=== PATIENT | male | born 1990 | race Caucasian/White ===

== ENCOUNTER 2020-08-29 18:24 | Emergency (ER) | payer OTHER, SELFPAY ==
[2020-08-29 18:25] VITALS: BP 126/75; PULSE 84; RESP 19; TEMP 36.6; O2SAT 100; BMI 28.3
--- NOTE | 2020-08-29 18:44 | HMH.EDUTC ---
[facility] [place] Disposition Clinical Impression: Encounter for laboratory testing for COVID-19 virus Disposition: Home, Self-Care Condition on Discharge: Good Instructions: DI for COVID-19 (Suspected or Confirmed ), Coronavirus Disease 2019, Preventing the Spread of Coronavirus Discharge Instructions Additional Instructions: *Monitor Temp, Over the counter Motrin or Tylenol as directed/as needed Tylenol every 4 hours and Motrin every 6 hours (as long as your family doctor has told you that you can take it) for fever or pain. and straight to ER if unable to lower temp less than 101.0 after medication given *Warm salt water gargles may help to soothe the throat *Throat Lozenges *Warm fluids like tea with honey may help to soothe the throat *Sleep elevated *Humidifier/Vaporizer Follow up IMMEDIATELY for new or worsening symptoms or no Noticeable improvement over the next 48-72 hours. 911 for difficulty breathing or swallowing You were tested for today for COVID19 your test result should be back in the next 24-48 hours, you may call to the [facility] to see if your test results are back in the next 48 hours [phone] [facility] hours are 9am-9pm You was given a handout with instructions for Self Quarantine and Self isolation for while you wait on test results and what to do if they are positive If you are positive the Health Dept will be contacting you also Referrals: PCP,No [Primary Care Provider] - As needed Forms: Work/School Release Time of Disposition: 18:46 Medical Decision Making - Cholo Inquiry Pt receiving controlled substance: No Cholo was queried for this patient: No Vital Signs: 08/29/20 18:25 Temperature 97.8 F Temperature Source Oral Pulse Rate [Right Brachial] 84 Respiratory Rate 19 Blood Pressure [Right Arm] 126/75 Blood Pressure Mean [Right Arm] 92 Blood Pressure Source [Right Arm] Automatic Cuff Blood Pressure Position [Right Arm] Sitting 02 Sat by Pulse Oximetry 100 Oxygen Delivery Method Room Air Orders (Tests/Meds): ORDERS Category Date Time Status Covid-19 Nasal PCR ([facility]) Routine Lab 08/29/20 18:26 Ordered [facility] [place] HPI - General Stated complaint: covid test Time Seen by Provider: 08/29/20 18:44 Mode of Arrival: Ambulatory Source of Information: Patient Limitations: No Limitations Description of Symptoms (Recalled from Triage Doc. by RN): PATIENT REPORTS HE WOKE UP WITH A SORE THROAT, BUT FEELS BETTER NOW. HIS JOB WANTS HIM TO HAVE A COVID TEST HEENT Symptoms (Recalled from RN notes): No Resp Symptoms (Recalled from RN notes): No Skin Symptoms (Recalled from RN notes): No MS Symptoms (Recalled from RN notes): No Functional Status (Recalled from RN notes): WNL - History of Present Illness Provider Complaint: Patient states that he woke up with sore throat a couple of days ago and was unable to work State that he is no longer having sore throat but work will not let him return until he gets tested for COVID - Related Data Allergies Allergy/AdvReac Type Severity Reaction Status Date / Time No Known Allergies Allergy Verified 09/15/18 18:47 - Worker's Comp Is this a Worker's Comp case?: No [facility] History - Hepatitis A Screen Drug use history?: No High risk sexual behaviors?: No History of sexually transmitted infection?: No Currently employed?: No Childcare worker?: No Do you have indoor plumbing?: Yes Do you have electricity?: Yes Attestation statement:: This patient has been screened for Hepatitis A risk factors. I have reviewed the patient's past medical history: Yes ROS Obtained: Yes All systems reviewed & no additional complaints, Yes Systems reviewed as appropriate & no additional complaints - Constitutional Constitutional: Reports system reviewed and no additional complaints, except as docu, Denies body ache, Denies chills, Denies fever(s), Denies headache(s) - ENT Ears, Nose, Mouth, and Throat: Reports system reviewed and no additional complaints, except as docu Denie
[2020-08-29 18:47] VITALS: BP 126/75; PULSE 84; RESP 19; TEMP 36.6; O2SAT 100
--- NOTE | 2020-08-30 15:29 | PC.NURSE ---
ATTEMPTED TO CALL PT ABOUT POSITIVE COVID RESULT. NO ANSWER. WILL TRY AGAIN LATER.
--- NOTE | 2020-08-30 18:18 | PC.NURSE ---
ATTEMPTED TO CALL PT AGAIN, STILL NO ANSWER. WILL TRY AGAIN LATER.
--- NOTE | 2020-08-31 10:45 | PC.NURSE ---
ATTEMPTED TO REACH PT ABOUT COVID RESULTS. STILL NO ANSWER AT THIS TIME
== END 2020-08-29 18:50 | disposition home or self-care (01) ==
PROVIDERS: Emergency Provider Nurse Practitioner
DX: U07.1 COVID-19 (principal)
CPT/HCPCS: 99202; G0463; U0003

== ENCOUNTER 2020-11-28 08:35 | Emergency (ER) | payer OTHER, SELFPAY ==
[2020-11-28] VITALS (10 sets, daily range): BP systolic 126–162; BP diastolic 88–110; PULSE 94–130; RESP 16–20; TEMP 37; O2SAT 97–99; BMI 26.6
--- NOTE | 2020-11-28 08:46 | CT_ITS ---
PROCEDURE: CT HEAD/BRAIN WO CON CLINICAL INDICATION: shaking all over, blurry vision priot brain bleed COMPARISON: CT HDWO CT HEAD W/O CONTRAST from 06/14/2014 TECHNIQUE: Axial images obtained. All CT scans at the facility use one or more dose reduction, viz: automated exposure control, ma/kV adjustment per patient size (including targeted exams where dose is matched to indication, i.e. head), or iterative reconstruction technique. FINDINGS: No midline shift, mass effect, intracranial hemorrhage, hydrocephalus, or extra-axial fluid collection is evident. Mild asymmetrical prominence noted of the right middle cerebral artery probably not significantly changed. Recommend out the calvarium has an unremarkable appearance. No mastoid effusion. No sinus air-fluid level. IMPRESSION: No acute intracranial finding Dictated by: Nayan Aj MD 11/28/2020 09:21 Nayan Aj MD in [place] 11/28/2020 09:21
--- NOTE | 2020-11-28 08:47 | PC.NURSE ---
notified ER MD of pt presenting s/s, verbal orders obtained
[2020-11-28 08:52] LABS: Basophils # 0.1 K/mm3 (0-0.2); Basophils % 0.7 % (0.1-2.0); Eosinophils # 0.4 K/mm3 (0.0-0.4); Eosinophils % 3.1 % (0.1-12.0); Hematocrit 46.4 % (42.0-52.0); Hemoglobin 15.5 g/dL (14.1-18.0); Lymphocytes # 4.9 K/mm3 (0.7-4.5); Lymphocytes % 40.2 % (10-50); Mean Corpuscular HGB Conc 33.4 g/dL (31.8-35.4); Mean Corpuscular Hemoglobin 30.9 pg (27.0-31.2); Mean Corpuscular Volume 92.5 fl (80-94); Mean Platelet Volume 7.2 fl (7.4-10.4); Monocytes # 0.9 K/mm3 (0.1-1.0); Monocytes % 7.5 % (1.7-9.3); Neutrophils # 5.9 K/mm3 (1.8-7.8); Neutrophils % 48.5 % (37.0-80.0); Platelet Count 333 K/mm3 (142-424); Red Blood Count 5.02 M/mm3 (4.60-6.20); Red Cell Distribution Width 12.4 % (11.5-17.5); White Blood Count 12.1 K/mm3 (4.8-10.8)
--- NOTE | 2020-11-28 08:55 | PC.NURSE ---
cool rags to pt head and back of neck- pt reports he is feeling very hot at this time.
--- NOTE | 2020-11-28 08:59 | PC.NURSE ---
pt to CT at this time
--- NOTE | 2020-11-28 08:59 | PC.NURSE ---
fsbs 110
[2020-11-28 09:00] LABS: Alanine Aminotransferase 18 U/L (12-78); Albumin/Globulin Ratio 1.4 (1.1-1.8); Alkaline Phosphatase 66 U/L (38-126); Anion Gap 13.3 mEq/L (5-15); Aspartate Amino Transferase 30 U/L (17-59); Bilirubin,Total 0.3 mg/dl (0.2-1.3); Blood Urea Nitrogen 13 mg/dl (9-20); Calcium 10.1 mg/dl (8.4-10.2); Carbon Dioxide 30 mmol/L (22.0-30.0); Chloride 104 mmol/L (98-107); Creatinine Clearance Estimated 113 mL/min (50-200); Estimated Glomerular Filt Rate 87 ml/min (>60); GFR (African American) 105 ML/MIN (>60); Globulin 3.7 g/dL (1.3-3.2); Glucose 92 mg/dl (74-100); Potassium 3.3 mmoL/L (3.5-5.1); Sodium 144 mmol/L (136-145); Total Protein,Serum 8.7 g/dl (6.3-8.2)
[2020-11-28 09:06] LABS: POC Glucose,Bedside 110 (70-110)
[2020-11-28 09:12] LABS: Troponin I < 0.01 ng/ml (0.00-0.034)
--- NOTE | 2020-11-28 10:01 | ECG_ITS ---
APPROVED REPORT Exam: Resting ECG HR:119 bpm ECG Measurements Heart Rate 119 AXES UT 140 P 77 QRSd 76 QRS 75 QT 314 T 53 QTc 441 Conclusion Sinus tachycardia Otherwise normal ECG Electronically signed by : Neil Jacques, 11/29/2020 08:49:45
--- NOTE | 2020-11-28 10:03 | PC.NURSE ---
[place] FROM POISON CONTROL STATED TO MONITOR PATIENT UNTIL SYMPTOMS OF TACHYCARDIA AND TREMORS RESOLVE
[2020-11-28 10:17] LABS: Creatine Kinase 118 U/L (55-170)
[2020-11-28 10:27] LABS: Creatine Kinase MB 0.4 ng/ml (0.0-2.03)
--- NOTE | 2020-11-28 10:55 | PC.NURSE ---
pt reporting he is feeling much better. Pt has no shaking noted at this time
--- NOTE | 2020-11-28 11:21 | HMH.EDOD ---
ED Disposition Clinical Impression: Accidental drug ingestion Qualifiers: Encounter type: initial encounter Qualified Code(s): T50.901A - Poisoning by unspecified drugs, medicaments and biological substances, accidental (unintentional), initial encounter Disposition: Home, Self-Care Condition on Discharge: Fair Instructions: DI for Drug Overdose in Adults Additional Instructions: Please note we have checked your labs and did notice low potassium and we have given you potassium; we have also given you a medicine to lower your heart rate and it appears this is been successful; we did spoke speak to poison control and followed their advice; obviously you do not want to take [id number] medications without doctors orders please follow-up as needed Referrals: Dontrell Cabrera MD [Primary Care Provider] - - Critical Care Critical Care Time: No Attestation: On 11/28/20, the high probability of a clinically significant, sudden or life threatening deterioration of the following system(s) required my full and direct attention, intervention and personal management. The time I documented below is in addition to time spent performing reported procedures but includes the following listed in this critical care notation. Medical Decision Making - Medical Records Medical records reviewed: Yes: I reviewed the patient's medical records. MR Comment: 30 year old male here brought by EMS with a complaint that he was shaking all over and was feeling hot, he had taken an [id number] extends pill ( a male enhancer) he has no other significant medical problems he took the pill last night and but his symptoms started early this morning. We did talk to poison control and they advised benzodiazepine as well as observation both of which we have done he has been given Lopressor 2.5 mg IV and his symptoms have improved and that he wants to go home we did check his labs and noted that his potassium was low at 3.3 plan is to give him potassium 20 mEq here and also Lopressor 25 mg and advised him follow-up with his primary care physician - Cholo Baker Pt receiving controlled substance: No Vital Signs: 11/28/20 08:38 11/28/20 09:16 11/28/20 09:30 Temperature 98.6 F Temperature Source Oral Pulse Rate 111 H 114 H Pulse Rate [Right Radial] 130 H Respiratory Rate 20 20 16 Blood Pressure 158/102 H 126/88 Blood Pressure [Right Arm] 162/110 H Blood Pressure Mean 100 Blood Pressure Mean [Right Arm] 127 Blood Pressure Source Automatic Cuff Blood Pressure Source [Right Arm] Automatic Cuff Blood Pressure Position Sitting Blood Pressure Position [Right Arm] Supine 02 Sat by Pulse Oximetry 97 98 97 Oxygen Delivery Method Room Air Room Air 11/28/20 09:31 11/28/20 10:00 11/28/20 10:28 Temperature Temperature Source Pulse Rate 103 H 118 H 97 H Pulse Rate [Right Radial] Respiratory Rate 18 18 20 Blood Pressure 126/88 152/107 H 136/103 H Blood Pressure [Right Arm] Blood Pressure Mean 116 109 Blood Pressure Mean [Right Arm] Blood Pressure Source Blood Pressure Source [Right Arm] Blood Pressure Position Blood Pressure Position [Right Arm] 02 Sat by Pulse Oximetry 99 98 98 Oxygen Delivery Method Room Air - Lab Data Lab results reviewed: Yes: I reviewed the patient's lab results. Lab Results 11/28/20 08:30: WBC 12.1 H, RBC 5.02, Hgb 15.5, Hct 46.4, MCV 92.5, MCH 30.9, MCHC 33.4, RDW 12.4, Plt Count 333, MPV 7.2 L, Neut % (Auto) 48.5, Lymph % (Auto) 40.2, Cache % (Auto) 7.5, Eos % (Auto) 3.1, Baso % (Auto) 0.7, Neut # (Auto) 5.9, Lymph # (Auto) 4.9 H, Cache # (Auto) 0.9, Eos # (Auto) 0.4, Baso # (Auto) 0.1 11/28/20 08:30: Sodium 144, Potassium 3.3 L, Chloride 104, Carbon Dioxide 30, Anion Gap 13.3, BUN 13, Creatinine 1.00, Estimated Creat Clear 113, Estimated GFR 87, Est GFR ( Amer) 105, Glucose 92, Calcium 10.1, Total Bilirubin 0.3, AST 30, ALT 18, Alkaline Phosphatase 66, Troponin
== END 2020-11-28 12:03 | disposition home or self-care (01) ==
PROVIDERS: Emergency Provider Emergency Medicine; PCP Emergency Medicine
DX: R11.0 Nausea (principal); T50.901A Poisoning by unspecified drugs, medicaments and biological substances, accidental (unintentional), initial encounter; H53.8 Other visual disturbances; Y92.019 Unspecified place in single-family (private) house as the place of occurrence of the external cause; R03.0 Elevated blood-pressure reading, without diagnosis of hypertension; E87.6 Hypokalemia
CPT/HCPCS: 70450; 80053; 82550; 82553; 82962; 84484; 85025; 93005; 96365; 96375; 99282